=== PATIENT | female | born 1960 | race Two or more races ===

== ENCOUNTER 2021-08-23 06:17 | Emergency (ER) | payer OTHER ==
[~2021-08-23] VITALS: Ht 152.4 cm; Wt 60.8 kg
[2021-08-23] MEDS ORDERED: hydrALAZINE HCL IV 20 MG VIAL ONE ×2 (06:57→07:05)
[2021-08-23] MEDS ORDERED: hydrALAZINE HCL IV 20 MG VIAL IV ONE (07:00)
--- NOTE | 2021-08-23 07:08 | NUR ---
CALLED LAB TO [facility] KEEPER THE BLOOD SAMPLE
--- NOTE | 2021-08-23 07:30 | NUR ---
Anxious- Hyperventilating asking for O2 on simple mask for comfort. MD notified, Pt positioned for comfort made aware of plan of care and HOB 45degree Angle
[2021-08-23 07:48] LABS: BASOPHILS # (AUTO) 0.1 K/uL (0.0-0.2); BASOPHILS % (AUTO) 0.8 % (0.0-2.0); EOSINOPHILS % (AUTO) 4.1 % (0.0-6.0); HEMATOCRIT 33 % (33-45); HEMOGLOBIN 10.9 g/dL (11.5-14.8); LYMPHOCYTES # (AUTO) 1.2 K/uL (0.8-4.8); MEAN CORPUSCULAR HGB CONC 33 g/dl (31.0-36.0); MEAN CORPUSCULAR VOLUME 94 fL (82-100); MONOCYTES # (AUTO) 0.6 K/uL (0.1-1.30); MONOCYTES % (AUTO) 8.4 % (2.0-12.0); NEUTROPHILS # (AUTO) 4.5 K/uL (1.8-8.9); NEUTROPHILS % (AUTO) 67.7 % (43.0-81.0); PLATELET COUNT (AUTO) 241 K/uL (150-450); RED BLOOD CELL COUNT(AUTO) 3.51 MIL/uL (4.0-5.2); WHITE BLOOD COUNT (AUTO) 6.6 K/uL (4.3-11.0)
[2021-08-23] MEDS ORDERED: IV NS 0.9% 500 ML BAG IV ONE (08:00)
[2021-08-23] MEDS ORDERED: KETOROLAC TROMETHAMINE INJ 30 MG/ML VIAL IV ONE (08:00)
[2021-08-23] MEDS: Magnesium 1GM/D5W 100ML PREMIX 100 ML IV SCH ×2 (08:00→09:00)
[2021-08-23] MEDS ORDERED: METOCLOPRAMIDE HCL 10 MG/2 ML VIAL IV ONE (08:00)
[2021-08-23] MEDS ORDERED: diphenhydrAMINE HCL 50 MG/ML VIAL IV ONE (08:00)
[2021-08-23 08:14] LABS: CALCIUM, SERUM 8.6 mg/dL (8.5-10.1); POTASSIUM 4.3 mmol/L (3.5-5.1)
[2021-08-23] MEDS ORDERED: diphenhydrAMINE HCL 50 MG/ML VIAL ONE (08:16)
[2021-08-23] MEDS ORDERED: Magnesium 1 GM/2 ML VIAL ONE (08:16)
[2021-08-23] MEDS ORDERED: KETOROLAC TROMETHAMINE INJ 30 MG/ML VIAL ONE (08:17)
[2021-08-23] MEDS ORDERED: METOCLOPRAMIDE HCL 10 MG/2 ML VIAL ONE (08:17)
--- NOTE | 2021-08-23 08:18 | NUR ---
CALLED [facility] AND REQUESTED A DOCTOR TO DOCTOR CONSULT
[2021-08-23] MEDS ORDERED: LABETALOL HCL IV 100MG VIAL IV ONE (08:30)
[2021-08-23] MEDS ORDERED: NICARDIPINE HCL 40 MG in IV NS 0.9% 184 ML IV PRN (08:30)
[2021-08-23] MEDS ORDERED: LABETALOL HCL IV 100MG VIAL ONE (08:46)
--- NOTE | 2021-08-23 08:55 | NUR ---
Pt states "Headache a little bit better. Calmer"
[2021-08-23] MEDS ORDERED: Magnesium 1GM/D5W 100ML PREMIX PIGGYBACK IV ONE ×2 (09:00→09:30)
--- NOTE | 2021-08-23 09:07 | NUR ---
MgSO4 ORDER REPLACED PER ORDER,UNABLE TO DOCUMENT SINCE DOSE WRITTEN 0 ML/HR INSTEAD OF 100 ML/HR
[2021-08-23 09:11] LABS: CREATININE 7.5 mg/dL (0.6-1.3)
[2021-08-23] MEDS ORDERED: Magnesium 1GM/D5W 100ML PREMIX 100 ML IV ONE (09:40)
--- NOTE | 2021-08-23 10:00 | NUR ---
Pt started on Cardene as per orders titrated for BP control per MD orders see documentation flowsheet- Updated with plan of care
--- NOTE | 2021-08-23 10:49 | NUR ---
RADIOLOGY AT BEDSIDE FOR CHEST XRAY.
--- NOTE | 2021-08-23 11:49 | NUR ---
VITALS UPDATED. NICARDIPINE DRIP TITRATED TO EFFECT.
--- NOTE | 2021-08-23 14:35 | NUR ---
CALLED TO FOLLOW UP WITH [facility] AND SPOKE TO ISSAC GRAHAM. AT THE MOMENT THEY ARE WAITING FOR AN ACCEPTING MD AT [facility]. UPDATED THEM WITH NEGATIVE COVID RESULTS.
--- NOTE | 2021-08-23 16:11 | NUR ---
[facility] CALLED AND WAS NOTIFIED OF PT TRANSFER INFO PT GOT ACCPETED TO [facility] ICU BED [id number] NUMBER FOR REPORT [phone] THE CARE OF DR. BARRIOS CCT TRANSFER ETA [id number]
[2021-08-23 16:48] VITALS: BP 140/62
--- NOTE | 2021-08-23 16:57 | NUR ---
REPORT GIVEN TO MOHAN GREY AT [facility]. AWAITING TRANSPORT.
== END 2021-08-23 18:06 | disposition short-term general hospital (02) ==
LOC: ER 06:19
DX: I16.1 Hypertensive emergency (principal); T86.12 Kidney transplant failure; E11.22 Type 2 diabetes mellitus with diabetic chronic kidney disease; N18.6 End stage renal disease; Z99.2 Dependence on renal dialysis; Z20.822 Contact with and (suspected) exposure to COVID-19; R94.31 Abnormal electrocardiogram [ECG] [EKG]; E11.65 Type 2 diabetes mellitus with hyperglycemia
CPT/HCPCS: 36415; 70450; 71045; 80048; 83735; 83880; 84484; 85025; 87426; 93005; 96361; 96365; 96375; 99291; C9803; J0360; J1200; J1885; J2765; J3475 ×2; J3490; J7050 ×2